=== PATIENT | female | born 1975 | race Caucasian/White ===

== ENCOUNTER 2017-01-07 17:20 | Emergency (ER) | payer SELFPAY ==
[~2017-01-07] VITALS: Ht 167.6 cm; Wt 65.5 kg
[~2017-01-07 17:20] MED LIST: ALPR1TAB2 PO; IBUP-1542 PO; ONDA4TAB14 PO; ONDA4TAB8 PO; TRAM50TA2 PO
[2017-01-07 17:25] VITALS: Ht 167.6 cm; Wt 65.5 kg
[2017-01-07] MEDS ORDERED: KETOROLAC 30 MG INJ IV STA (19:05)
[2017-01-07] MEDS ORDERED: MECLIZINE 12.5 MG TAB PO ONE (19:30)
[2017-01-07] MEDS ORDERED: SOD CHLORIDE 0.9% 1,000 ML IV ONE (19:30)
--- NOTE | 2017-01-07 19:35 | ERD ---
ER Documentation Chief Complaint Date/Time DATE: 01/07/17 TIME: 19:31 Chief Complaint Back pain, dizziness that started yesterday HPI 41-year-old female presents to emergency department for multiple complaints. Patient's complaining of lower back pain, patient is a chronic back pain, had a back surgery done 7 months ago, patient has had the pain ever since, now worse in the last 2 days. Patient has history of sciatica. Patient has a history of right lower back pain that radiated to the right lower leg, after surgery, now the left lower leg has been more painful. Patient denies any back injury. Patient's complaining of back pain, throbbing pains infection scale, worse upon movement. Patient did not take any medications of the symptoms. Yesterday, patient started to have dizziness, fatigability, patient describes the dizziness as spinning sensation, patient denies any head injury. Patient denies any headache. Patient denies any nausea or vomiting. Patient does complain of left sided chest pain on and off for the last 2 days, radiates to the left arm. Patient denies any chest pain at this time. Patient described the chest pain as sharp pain 4/10 scale, intermittent. Patient did not take any medications. And symptoms. ROS All systems reviewed and are negative except as per history of present illness. Medications Home Meds Active Scripts Ibuprofen* (Motrin*) 600 Mg Tab, 600 MG PO Q6H Y for PAIN AND OR ELEVATED TEMP, #30 TAB Prov:KAREEM MEHTA NP 02/24/16 Tramadol HCl (Tramadol HCl) 50 Mg Tablet, 50 MG PO Q6 Y for PAIN, #20 TAB Prov:KAREEM MEHTA NP 02/24/16 Ondansetron (Ondansetron Odt) 4 Mg Tab.rapdis, 4 MG PO Q8 Y for NAUSEA AND/OR VOMITING, #30 TAB Prov:KAREEM MEHTA NP 02/24/16 Alprazolam* (Xanax*) 1 Mg Tab, 1 MG PO Q8H Y for ANXIETY, #10 TAB Prov:KAREEM MEHTA NP 02/24/16 Ondansetron Hcl* (Zofran*) 4 Mg Tablet, 4 MG PO Q6H for NAUSEA AND/OR VOMITING, #30 TAB Prov:JARRETT PETTY CHENILLE MACHINE OPERATOR 02/18/16 Allergies Allergies: Coded Allergies: metoclopramide (Verified Allergy, Severe, ANXIETY, 01/30/16) PMhx/Soc History of Surgery: Yes ( x2, appendectomy, nasal surgery, disc repair , LAMINECTOMY 01/30/16) Anesthesia Reaction: No Hx Neurological Disorder: No Hx Respiratory Disorders: No Hx Cardiac Disorders: No Hx Psychiatric Problems: No Hx Miscellaneous Medical Probl: No Hx Alcohol Use: No Hx Substance Use: No Hx Tobacco Use: No Smoking Status: Never smoker FmHx Family History: No coronary disease, No diabetes, No other Physical Exam Vitals Vital Signs Date Time Temp Pulse Resp B/P Pulse Ox O2 Delivery O2 Flow Rate FiO2 01/07/17 17:25 99.5 76 20 125/82 98 Physical Exam GENERAL: The patient is well developed and appropriate for usual state of health, in no apparent distress. CHEST: Clear to auscultation bilaterally. There are no rales, wheezes or rhonchi. HEART: Regular rate and rhythm. No murmurs, clicks, rubs or gallops. No S3 or S4. ABDOMEN: Soft, nontender and nondistended. Good bowel sounds. No rebound or guarding. No gross peritonitis. No gross organomegaly or masses. No Olivier sign or McBurney point tenderness. BACK: No midline or flank tenderness. Muscle spasms noted in the paraspinal aspect of the lumbar spine, able to do full range of motion without any restriction but with pain. EXTREMITIES: Equal pulses bilaterally. There is no peripheral clubbing, cyanosis or edema. No focal swelling or erythema. Full range of motion. Grossly neurovascularly intact. NEURO: Alert and oriented. Cranial nerves 2-12 intact. Motor strength in all 4 extremities with 5/5 strength. Sensation grossly intact. Normal speech and gait. Negative Olivier sign. Negative pronator drift. Positive [place]-Hallpike exam. SKIN: There is no apparent rash or petechia. The skin is warm and dry. HEMATOLOGIC AND LYMPHATIC: There is no evidence of excessive bruising or lymphedema. No gross cervical, axillary, or inguinal lymphadenopathy. Result Diagram: 01/07/17199901/07/171999 Results 24 hrs Laboratory Tests Test 01/07/17 19:20 01/07/17 20:00 Urine Color YELLOW Urine Clarity SLIGHTLY CLOUDY Urine pH 7.0 Urine Specific [place] 1.021 Urine Ketones NEGATIVEmg/dL Urine Nitrite NEGATIVEmg/dL Urine Bilirubin NEGATIVEmg/dL Urine Urobilinogen NEGATIVEmg/dL Urine Leukocyte Esterase NEGATIVELeu/ul Urine Microscopic RBC 2/HPF Urine Microscopic WBC 3/HPF Urine Squamous Epithelial Cells FEW/HPF Urine Hemoglobin NEGATIVEmg/dL Urine Glucose NEGATIVEmg/dL Urine Total Protein NEGATIVEmg/dl White Blood Count 7.610^3/ul Red Blood Count 4.5510^6/ul Hemoglobin 13.9g/dl Hematocrit 40.6% Mean Corpuscular Volume 89.2fl Mean Corpuscular Hemoglobin 30.5pg Mean Corpuscular Hemoglobin Concent 34.2g/dl Red Cell Distribution Width 13.3% Platelet Count 91188^3/UL Mean Platelet Volume 10.2fl Neutrophils % 56.6% Lymphocytes % 34.3% Monocytes % 5.7% Eosinophils % 2.9% Basophils % 0.4% Nucleated Red Blood Cells % 0.0/100WBC Neutrophils # 4.310^3/ul Lymphocytes # 2.610^3/ul Monocytes # 0.410^3/ul Eosinophils # 0.210^3/ul Basophils # 0.010^3/ul Nucleated Red Blood Cells # 0.010^3/ul Sodium Level 146mmol/L Potassium Level 3.7mmol/L Chloride Level 102mmol/L Carbon Dioxide Level 26mmol/L Anion Gap 22 Blood Urea Nitrogen 12mg/dl Creatinine 0.65mg/dl Glucose Level 90mg/dl Calcium Level 9.7mg/dl Total Bilirubin 0.2mg/dl Direct Bilirubin 0.00mg/dl Indirect Bilirubin 0.2mg/dl Aspartate Amino Transf (AST/SGOT) 25IU/L Alanine Aminotransferase (ALT/SGPT) 28IU/L Alkaline Phosphatase 80IU/L Troponin I < 0.012ng/ml Total Protein 9.2g/dl Albumin 5.2g/dl Globulin 4.00g/dl Albumin/Globulin Ratio 1.30 Current Medications Medications (Trade) Dose Ordered Sig/Heena Route PRN Reason Start Time Stop Time Status Last Admin Dose Admin Ketorolac Tromethamine (Toradol) 30 mg ONCE STAT IV 01/07/17 19:05 01/07/17 19:12 DC 01/07/17 19:58 Meclizine HCl 25 mg 25 mg ONCE ONCE PO 01/07/17 19:30 01/07/17 19:31 DC 01/07/17 19:57 Sodium Chloride (NS) 1,000 ml @ 1,000 mls/hr Q1H ONCE IV 01/07/17 19:30 01/07/17 20:29 DC 01/07/17 19:58 Patient was given medication for pain here in emergency department, after treatment, patient verbalized feeling much better. Patient's pain is improved.Normal saline IV bolus was given here in emergency department for rehydration, patient tolerated IV fluids. Meclizine was given to help with dizziness. EKG was done, read by me and is normal sinus rhythm at a rate of 61, normal axis , there is no ST changes or changes in the EKG that indicates any cardiac emergencies at this time. Patient's EKG was also reviewed by Dr. Leslie. Impression: no acute findings on EKG PROCEDURE: CT Lumbar Spine without contrast. CLINICAL INDICATION: 41-year-old with back pain. TECHNIQUE: The study was performed on a [employer] CT scanner. Spiral axial 1 mm images were obtained through the lumbar spine and reformatted at 2.5 mm slice thickness. Sagittal and coronal reformations were created from the raw axial data. The images were reviewed on a PACS workstation. One or more of the following dose reduction techniques were used: - Automated exposure control. - Adjustment of the mA and/or kV according to patient size. Use of iterative reconstruction technique. The CTDIvol is 10.7 a mGy and the DLP is 359 mGycm. COMPARISON: No prior studies are available for comparison. FINDINGS: T10-11: The intervertebral disk space neural canal and nerve root foramina are unremarkable. The articular facets are normal. No disk bulge or herniations identified. T11 is intact. T11-12: The intervertebral disk space neural canal and nerve root foramina are unremarkable. No disk bulge or herniations identified. There are mild degenerative changes in the articular facets. The neural canal is normal in size. T12 is unremarkable. T12-L1: The intervertebral disk space neural canal and nerve root foramina are unremarkable. The articular facets exhibit mild degenerative change. No disk bulge or herniations identified. L1 is intact. L1-2: The intervertebral disk space neural canal and nerve root foramina are unremarkable. No disk bulge or herniations identified. L2 is intact. L2-3: There is mild ventral spondylosis. The intervertebral disk space neural canal and nerve root foramina are unremarkable. No significant there is a 2 mm central and paracentral disk bulge. There are small ventral osteophytes off of L3. The neural canal and L3 is normal in size. L3-4: The intervertebral disk space is unremarkable. There is mild dorsal disk space narrowing and there is a mild broad disk bulge. No disk herniations identified. The neural canal and nerve root foramina are unremarkable. L4 is unremarkable. L4-5: There is mild ventral spondylosis and mild disk space narrowing. A 3.7 mm AP left lateral disk bulge is identified. A 3.8 mm right lateral disk osteophyte complex is noted. No central canal or nerve root canal stenosis is present. The articular facets are unremarkable. L5 is unremarkable. L5-S1: There is a mild central and paracentral disk bulge but no disk herniation. The nerve root canals neural canal are normal in size. The articular facets are unremarkable. S1 is unremarkable. There is a 7.5 mm benign bone bone island at S2. Remaining portions of the sacrum and coccyx are unremarkable. The SI joints and visible portions of the hip joints are normal. No paravertebral soft tissue mass is identified. The visible portions of the kidneys and both adrenal glands are normal. The visible portions of the liver, spleen and pancreas are unremarkable. There is moderate fecal material in the colon. IMPRESSION: 1. There are mild degenerative changes in the lumbar spine consistent with osteoarthritis as described above. No disk herniation is identified. 2. 7.5 mm benign bone island in the dorsal body of S2. 3. Fecal material is noted in the cecum and ascending colon. RPTAT:AAJJ Physician Astrid Date Time Electronically viewed and signed by Physician Astrid on 01/07/2017 20:00 EH/ CC: KAREEM MEHTA CHENIL[employer] MACHINE OPERATOR Procedures/MDM Medical Decision Making: Patient's pain is most likely consistent with a back strain, chronic back pain from degenerative this disease and history of surgery of affected area. It can be also from sciatica. There is no suspicion for neurovascular compromise. Patient has intact sensation and circulation of the affected extremity and distal extremities. No incontinence, no suspicion for cauda equina syndrome, no saddle anesthesia, no symptoms of any acute bacterial infection, no symptoms of any perirectal abscesses, pilonidal cyst.There is low suspicion for septic arthritis. Patient does not have any fever. No symptoms of any aortic dissection or aortic aneurysm. Radiology exam does not show any fractures or dislocation. She was dizziness nonspecific at this time, most likely from benign positional vertigo. Patient feels much better after taking meclizine and given IV fluids here in emergency department. There is low suspicion for neurological emergencies at this time since patients neurologic exam is normal. Patient did not have any altered level consciousness, vomiting, changes in balance or memory after incident. Patients CT scan of the head does not show any neurological emergencies at this time. Patient's left-sided chest pain nonspecific. Does Not Have Any Pain at This Time. There is low suspicion for cardiopulmonary emergencies at this time. Patient has low risk factors. EKG is normal, there is no changes in the EKG that indicates cardiac emergencies. Chest X-ray does not show cardiopulmonary emergencies at this time. There is low suspicion for aortic aneurysm, myocardial infarction, pneumothorax, pleural effusion, pulmonary embolism, or any other cardiopulmonary emergencies at this time. Cardiac markers are normal. Disposition: Home. Patient is given prescription for ibuprofen for mild to moderate pain, middle for severe pain, meclizine. Patient was advised to avoid heavy lifting , apply warm compresses on affected area. Patient was advised that if symptoms are worse, numbness, tingling, high fever, unable to move joint , worsening symptoms, to return to emergency department immediately. Otherwise, patient is advised to follow up with the primary care doctor in 5-7 days for reevaluation of symptoms. Departure Diagnosis: Primary Impression: Back pain Back pain location: low back pain Chronicity: acute Back pain laterality: bilateral Sciatica presence: with sciatica Sciatica laterality: bilateral sciatica Qualified Code: M54.42 - Acute bilateral low back pain with bilateral sciatica Additional Impressions: Dizziness Atypical chest pain Condition: Stable Patient Instructions: Back Pain W/ Sciatica, Benign Positional Vertigo, Chest Pain, Uncertain Cause Additional Instructions: Patient is given prescription for ibuprofen for mild to moderate pain, middle for severe pain, meclizine. Patient was advised to avoid heavy lifting , apply warm compresses on affected area. Patient was advised that if symptoms are worse , numbness, tingling, high fever, unable to move joint, worsening symptoms, to return to emergency department immediately. Otherwise, patient is advised to follow up with the primary care doctor in 5-7 days for reevaluation of symptoms. KAREEM MEHTA NP Jan 07, 2017 19:34
--- NOTE | 2017-01-07 20:00 | RADRPT ---
PROCEDURE: CT Lumbar Spine without contrast. CLINICAL INDICATION: 41-year-old with back pain. TECHNIQUE: The study was performed on a [employer] CT scanner. Spiral axial 1 mm images were obtained through the lumbar spine and reformatted at 2.5 mm slice thickness. Sagitt al and coronal reformations were created from the raw axial data. The images were reviewed on a PACS workstation. One or more of the following dose reduction techniques were used: - Automated exposure control. - Adjustment of the mA and/or kV according to patient size. Use of iterative reconstruction technique. The CTDIvol is 10.7 a mGy and the DLP is 359 mGycm. COMPARISON: No prior studies are available for comparison. FINDINGS: T10-11: The intervertebral disk space neural canal and nerve root foramina are unremarkable. The a rticular facets are normal. No disk bulge or herniations identified. T11 is intact. T11-12: The intervertebral disk space neural canal and nerve root foramina are unremarkable. No di sk bulge or herniations identified. There are mild degenerative changes in the articular facets. T he neural canal is normal in size. T12 is unremarkable. T12-L1: The intervertebral disk space neural canal and nerve root foramina are unremarkable. The a rticular facets exhibit mild degenerative change. No disk bulge or herniations identified. L1 is i ntact. L1-2: The intervertebral disk space neural canal and nerve root foramina are unremarkable. No disk bulge or herniations identified. L2 is intact. L2-3: There is mild ventral spondylosis. The intervertebral disk space neural canal and nerve root foramina are unremarkable. No significant there is a 2 mm central and paracentral disk bulge. The re are small ventral osteophytes off of L3. The neural canal and L3 is normal in size. L3-4: The intervertebral disk space is unremarkable. There is mild dorsal disk space narrowing and there is a mild broad disk bulge. No disk herniations identified. The neural canal and nerve root foramina are unremarkable. L4 is unremarkable. L4-5: There is mild ventral spondylosis and mild disk space narrowing. A 3.7 mm AP left lateral di sk bulge is identified. A 3.8 mm right lateral disk osteophyte complex is noted. No central canal or nerve root canal stenosis is present. The articular facets are unremarkable. L5 is unremarkable . L5-S1: There is a mild central and paracentral disk bulge but no disk herniation. The nerve root c anals neural canal are normal in size. The articular facets are unremarkable. S1 is unremarkable. There is a 7.5 mm benign bone bone island at S2. Remaining portions of the sacrum and coccyx are un remarkable. The SI joints and visible portions of the hip joints are normal. No paravertebral soft tissue mass is identified. The visible portions of the kidneys and both adren al glands are normal. The visible portions of the liver, spleen and pancreas are unremarkable. The re is moderate fecal material in the colon. IMPRESSION: 1. There are mild degenerative changes in the lumbar spine consistent with osteoarthritis as descri bed above. No disk herniation is identified. 2. 7.5 mm benign bone island in the dorsal body of S2. 3. Fecal material is noted in the cecum and ascending colon. RPTAT:AAJJ Physician Astrid Date Time Electronically viewed and signed by Physician Astrid on 01/07/2017 20:00 EH/
[2017-01-07 20:13] LABS: ADD UMIC NO; UR ASCORBIC ACID 20 mg/dL (NEGATIVE); UR BILIRUBIN (Dip) NEGATIVE (NEGATIVE); UR BLOOD (Dip) NEGATIVE (NEGATIVE); UR CLARITY SLIGHTLY CLOUDY (CLEAR); UR COLOR YELLOW (YELLOW); UR GLUCOSE (Dip) NEGATIVE (NEGATIVE); UR KETONES (Dip) NEGATIVE (NEGATIVE); UR LEUKOCYTE ESTERASE (Dip) NEGATIVE Leu/ul (NEGATIVE); UR NITRITE (Dip) NEGATIVE (NEGATIVE); UR RBC 2 /HPF (0-5); UR SPECIFIC GRAVITY (Dip) 1.021 (1.003-1.030); UR SQUAMOUS EPITHELIAL CELL FEW /HPF (FEW); UR TOTAL PROTEIN (Dip) NEGATIVE (NEGATIVE); UR UROBILINOGEN (Dip) NEGATIVE (NEGATIVE)
[2017-01-07 20:33] LABS: ALBUMIN 5.2 g/dl (3.3-4.9); ALBUMIN/GLOBULIN RATIO 1.3; BILIRUBIN,INDIRECT 0.2 mg/dl (0-1.1); BILIRUBIN,TOTAL 0.2 mg/dl (0.2-1.3); CALCIUM 9.7 mg/dl (8.4-10.2); CREATININE 0.65 mg/dl (0.44-1.00); POTASSIUM 3.7 mmol/L (3.5-5.1); TOTAL PROTEIN 9.2 g/dl (6.1-8.1)
[2017-01-07 21:13] LABS: BASOPHILS % 0.4 % (0.0-2.0); EOSINOPHILS # 0.2 10^3/ul (0.0-0.5); EOSINOPHILS % 2.9 % (0.0-7.0); HEMATOCRIT 40.6 % (37.0-47.0); HEMOGLOBIN 13.9 g/dl (12.0-16.0); LYMPHOCYTES # 2.6 10^3/ul (0.8-2.9); LYMPHOCYTES % 34.3 % (15.0-51.0); MEAN CORPUSCULAR HEMOGLOBIN 30.5 pg (29.0-33.0); MEAN CORPUSCULAR HGB CONC 34.2 g/dl (32.0-37.0); MEAN CORPUSCULAR VOLUME 89.2 fl (82.0-101.0); MEAN PLATELET VOLUME 10.2 fl (7.4-10.4); MONOCYTE # 0.4 10^3/ul (0.3-0.9); MONOCYTES % 5.7 % (0.0-11.0); NEUTROPHIL # 4.3 10^3/ul (1.6-7.5); NEUTROPHILS % 56.6 % (39.0-77.0); PLATELET COUNT 299 10^3/UL (140-415); RED BLOOD COUNT 4.55 10^6/ul (4.20-5.40); RED CELL DISTRIBUTION WIDTH 13.3 % (11.5-14.5); WHITE BLOOD COUNT 7.6 10^3/ul (4.8-10.8)
[2017-01-07] MEDS ORDERED: MECL12.574 PO (21:22)
[2017-01-07] MEDS ORDERED: IBUP-1542 PO (21:22)
[2017-01-07] MEDS ORDERED: TRAM50TA2 PO (21:22)
[2017-01-07] MEDS ORDERED: ONDA4TAB14 PO (21:42)
[2017-01-07 21:43] VITALS: BP 126/78; PULSE 59; RESP 16; TEMP 98
== END 2017-01-07 21:46 | disposition home or self-care (01) ==
LOC: FTE 17:20
DX: M54.42 Lumbago with sciatica, left side (principal); R42 Dizziness and giddiness; R07.89 Other chest pain
CPT/HCPCS: 72131; 80053; 81001; 84484; 85025; 93005; J1885; J7030; 36415; 81003; 96374